=== PATIENT | female | born 1955 | race Hispanic/Latino ===

== ENCOUNTER → 2018-02-13 | Outpatient (CLI) | payer OTHER | END | disposition home or self-care (01) | LOC: OIH 11:34 | PROVIDERS: ATTEND Family Medicine | DX: M17.0 Bilateral primary osteoarthritis of knee (principal) | CPT/HCPCS: 73562 ==

== ENCOUNTER → 2018-02-28 | Outpatient (CLI) | payer OTHER | END | disposition home or self-care (01) | LOC: RAH 09:51 | PROVIDERS: ATTEND Family Medicine | DX: Z12.31 Encounter for screening mammogram for malignant neoplasm of breast (principal) | CPT/HCPCS: 77067 ==

== ENCOUNTER 2018-09-10 14:52 | Observation (INO) | payer OTHER ==
[~2018-09-10] VITALS: Ht 152.4 cm; Wt 74.6 kg
[2018-09-10 15:37] LABS: BASOPHILS % (AUTO) 1.1 % (0.0-5.0); EOSINOPHILS % (AUTO) 1.9 % (0.0-8.0); HEMATOCRIT 44.8 % (36-48); LYMPHOCYTES % (AUTO) 22.4 % (21.0-51.0); MEAN CORPUSCULAR HEMOGLOBIN 29.7 pg (27.0-33.0); MEAN CORPUSCULAR HGB CONC 34.2 g/dL (32.0-36.0); MEAN CORPUSCULAR VOLUME 86.8 fL (79-99); MONOCYTES % (AUTO) 7.2 % (3.0-13.0); NEUTROPHILS % (AUTO) 67.4 % (40.0-77.0); PLATELET COUNT (AUTO) 238 K/uL (130-400); RED BLOOD CELL COUNT(AUTO) 5.17 MIL/uL (4.00-5.50); RED CELL DISTRIBUTION WIDTH 13.4 % (11.0-15.5); WHITE BLOOD COUNT (AUTO) 6.2 K/uL (4.8-10.8)
[2018-09-10 15:45] LABS: CREATININE 0.5 mg/dL (0.5-1.5); POTASSIUM 3.8 mmol/L (3.5-5.1)
[2018-09-10 15:49] LABS: INR 0.95 (0.85-1.15); PARTIAL THROMBOPLASTIN TIME 26.4 SEC (26.3-35.5)
[2018-09-10 15:51] LABS: ALBUMIN 3.9 g/dL (3.5-5.0); BILIRUBIN,TOTAL 0.4 mg/dL (0.2-1.0); TOTAL PROTEIN, SERUM 6.9 g/dL (6.0-8.3)
[2018-09-10] MEDS ORDERED: ASPIRIN 325 MG TABLET ONE (18:21)
[2018-09-10] MEDS ORDERED: LACTULOSE 20 GM/30 ML UDCUP PO PRN (18:45)
[2018-09-10] MEDS ORDERED: ZOLPIDEM TARTRATE 5 MG TAB PO PRN (18:45)
[2018-09-10] MEDS ORDERED: GUAIFENESIN SUGAR-FREE 100 MG/5 ML UDCUP PO PRN (18:45)
[2018-09-10] MEDS ORDERED: ACETAMINOPHEN 325 MG TAB PO PRN (18:45)
[2018-09-10] MEDS ORDERED: GUAIFENESIN-DM 200/20 MG 10 ML PO PRN (18:45)
[2018-09-10] MEDS ORDERED: MAG HYDROX/AL HYDROX/SIMETH ES 30 ML SUSP UDCUP PO PRN (18:45)
[2018-09-10] MEDS ORDERED: SODIUM CHLORIDE 0.9% 10 ML VIAL IVP PRN (18:45)
[2018-09-10] MEDS ORDERED: DIPHENHYDRAMINE HCL 25 MG CAPSULE PO PRN (18:45)
[2018-09-10] MEDS ORDERED: DiphenhydrAMINE HCL 50 MG/ML VIAL IVP PRN (18:45)
[2018-09-10] MEDS ORDERED: CLONIDINE HCL 0.1 MG TABLET PO PRN (18:45)
[2018-09-10] MEDS ORDERED: NITROGLYCERIN 0.4 MG SL TAB SL PRN (18:45)
[2018-09-10] MEDS ORDERED: ONDANSETRON HCL 4 MG/2 ML VIAL IVP PRN (18:45)
[2018-09-10 22:44] LABS: CREATINE KINASE, TOTAL 179 U/L (21-232); MYOGLOBIN 75 ng/mL (10-92); TROPONIN I < 0.04 ng/mL (0.00-0.06)
[2018-09-10 23:41] VITALS: BP 124/96
[2018-09-11] MEDS ORDERED: ERGO500014 PO (00:11)
[2018-09-11] MEDS ORDERED: MELO-106 PO (00:11)
[2018-09-11] MEDS: METOPROLOL TARTRATE 50 MG TAB PO SCH ×3 (00:30→21:00)
[2018-09-11] MEDS: NITROGLYCERIN 1GM/1 INCH PACKET TD SCH ×4 (00:31→20:50)
[2018-09-11] MEDS: ACETAMINOPHEN 325 MG TAB PO PRN ×2 (03:58→17:22)
[2018-09-11 04:29] VITALS: BP 114/65
[2018-09-11 04:31] LABS: CREATINE KINASE, TOTAL 157 U/L (21-232); MYOGLOBIN 58 ng/mL (10-92); TROPONIN I < 0.04 ng/mL (0.00-0.06)
[2018-09-11 07:00] VITALS: BP 130/68
[2018-09-11] MEDS ORDERED: REGADENOSON 0.4 MG/5 ML PF SYG IVP SCH (08:00)
[2018-09-11] MEDS: ASPIRIN 325 MG TABLET PO SCH (08:17)
[2018-09-11 11:00] VITALS: BP 146/70
[2018-09-11 16:00] VITALS: BP 133/74
[2018-09-11 19:45] VITALS: BP 108/59
[2018-09-11 23:37] VITALS: BP 104/61
[2018-09-12 04:10] VITALS: BP 109/69
[2018-09-12] MEDS: NITROGLYCERIN 1GM/1 INCH PACKET TD SCH ×2 (04:15→12:28)
[2018-09-12 07:00] VITALS: BP 119/82
[2018-09-12] MEDS: ASPIRIN 325 MG TABLET PO SCH (08:54)
[2018-09-12] MEDS: METOPROLOL TARTRATE 50 MG TAB PO SCH (08:54)
[2018-09-12 11:00] VITALS: BP 112/46
[2018-09-12 16:00] VITALS: BP 124/54
[2018-09-12 16:05] LABS: CREATININE 0.9 mg/dL (0.5-1.5)
== END 2018-09-12 18:00 | disposition home or self-care (01) ==
LOC: EDH 14:52 → EDHIP 18:31 → 2DH 23:24
PROVIDERS: ADMIT Family Medicine; ATTEND Family Medicine
DX: R07.89 Other chest pain (principal); R73.9 Hyperglycemia, unspecified; E86.0 Dehydration; E83.52 Hypercalcemia; Z90.49 Acquired absence of other specified parts of digestive tract; Z98.49 Cataract extraction status, unspecified eye
CPT/HCPCS: 36415; 71045; 78452; 80048; 80053; 82550; 83874; 84484; 85025; 85378; 85610; 85730; 93005; 93017; 96374; A9500; G0378; J2785

== ENCOUNTER → 2019-01-05 | Outpatient (CLI) | payer OTHER ==
[~2019-01-05] MED LIST: MELO-106 PO
== END | disposition home or self-care (01) ==
LOC: OIH 13:14
PROVIDERS: ATTEND Family Medicine
DX: M25.561 Pain in right knee (principal); M25.562 Pain in left knee
CPT/HCPCS: 73560

== ENCOUNTER → 2019-05-12 | Outpatient (CLI) | payer OTHER | END | disposition home or self-care (01) | LOC: OIH 13:13 | PROVIDERS: ATTEND Family Medicine | DX: M25.551 Pain in right hip (principal) | CPT/HCPCS: 73502 ==

== ENCOUNTER → 2019-05-27 | Outpatient (CLI) | payer OTHER, MEDICARE | END | disposition home or self-care (01) | LOC: RAH 09:37 | PROVIDERS: ATTEND Family Medicine | DX: Z12.31 Encounter for screening mammogram for malignant neoplasm of breast (principal) | CPT/HCPCS: 77067 ==

== ENCOUNTER → 2021-04-17 | Outpatient (CLI) | payer OTHER, MEDICARE | END | disposition home or self-care (01) | LOC: RAH 11:55 | PROVIDERS: ATTEND Family Medicine | DX: M17.12 Unilateral primary osteoarthritis, left knee (principal); M25.762 Osteophyte, left knee | CPT/HCPCS: 73562 ==

== ENCOUNTER → 2023-10-30 | Outpatient (CLI) | payer OTHER, MEDICARE | END | disposition home or self-care (01) | LOC: RAH 13:37 | PROVIDERS: ATTEND Family Medicine | DX: Z12.31 Encounter for screening mammogram for malignant neoplasm of breast (principal) | CPT/HCPCS: 77067 ==

== ENCOUNTER 2024-06-15 06:09 | Observation (INO) | payer OTHER, MEDICARE ==
[2024-06-12 15:08] LABS: ALBUMIN 3.4 g/dL (3.5-5.0)
[2024-06-12 15:30] VITALS: BP 142/78; PULSE 74; RESP 18; TEMP 98.2
[2024-06-15] VITALS (27 sets, daily range): BP systolic 107–181; BP diastolic 66–99; PULSE 59–99; RESP 13–18; TEMP 97.4–99; O2SAT 96
[~2024-06-15] VITALS: Ht 149.9 cm; Wt 76.0 kg
[~2024-06-15 06:09] MED LIST changes: +ERGO500093 PO; +LEVO50CA4 PO; -MELO-106 PO; +MELO-108 PO; +TYLENOL ARTHRITIS PO
[2024-06-15 06:31] LABS: BASOPHILS # (AUTO) 0.08 K/uL (0.00-0.20); BASOPHILS % (AUTO) 1.1 % (0.0-5.0); EOSINOPHILS # (AUTO) 0.21 K/uL (0.00-0.70); EOSINOPHILS % (AUTO) 2.9 % (0.0-8.0); HEMATOCRIT 43.9 % (36-48); IMMATURE GRANULOCYTE ABSOLUTE 0.02 K/uL (0-1); LYMPHOCYTES # (AUTO) 2.3 K/uL (1.0-4.8); LYMPHOCYTES % (AUTO) 31.4 % (21.0-51.0); MEAN CORPUSCULAR HEMOGLOBIN 29.8 pg (27.0-33.0); MEAN CORPUSCULAR HGB CONC 33.5 g/dL (32.0-36.0); MEAN CORPUSCULAR VOLUME 88.9 fL (79-99); MONOCYTES # (AUTO) 0.6 K/uL (0.1-1.0); MONOCYTES % (AUTO) 8.1 % (3.0-13.0); NEUTROPHILS # (AUTO) 4.1 K/uL (1.8-7.7); NEUTROPHILS % (AUTO) 56.2 % (40.0-77.0); PLATELET COUNT (AUTO) 240 K/uL (130-400); RED BLOOD CELL COUNT(AUTO) 4.94 MIL/uL (4.00-5.50); RED CELL DISTRIBUTION WIDTH 12.3 % (11.0-15.5); WHITE BLOOD COUNT (AUTO) 7.2 K/uL (4.8-10.8)
[2024-06-15 06:37] LABS: APPEARANCE,URINE CLEAR (CLEAR); BILIRUBIN,URINE NEGATIVE (NEGATIVE); COLOR,URINE LIGHT-YELLOW (YELLOW); GLUCOSE, URINE (UA) NEGATIVE (NEGATIVE); KETONES,URINE NEGATIVE (NEGATIVE); LEUKOCYTE ESTERASE ,URINE 25 Leu/uL (NEGATIVE); NITRATE,URINE NEGATIVE (NEGATIVE); OCCULT BLOOD,URINE NEGATIVE (NEGATIVE); PROTEIN,URINE NEGATIVE (NEGATIVE); UROBILINOGEN,URINE 0.2 mg/dL (0.2-1.0)
[2024-06-15 06:43] LABS: ADD UA MICROSCOPIC YES
[2024-06-15] MEDS: FAMOTIDINE 20MG VIAL IV ONE (06:43)
[2024-06-15] MEDS: acetaMINOPHEN 1,000 MG/100 ML VIAL IV ONE (06:43)
[2024-06-15] MEDS ORDERED: ketaMINE 50MG/ML SYRINGE 50 MG/ML DISP.SYRIN ONE (06:45)
[2024-06-15] MEDS ORDERED: ROPivacaine 0.5% 5MG/ML 30ML ONE (06:45)
[2024-06-15] MEDS ORDERED: LIDOCAINE PF 100MG/5ML (2%) SYRINGE 5ML ONE (06:46)
[2024-06-15] MEDS ORDERED: proPOFol 10 MG/ML 20ML VIAL IV ONE (06:47)
[2024-06-15] MEDS ORDERED: FENTanyl CITRate PF 50 MCG/1 ML 2ML VIAL ONE (06:47)
[2024-06-15] MEDS ORDERED: rocuRONium bROMide 10MG/1ML 5ML VL ONE (06:47)
[2024-06-15 06:49] LABS: SQUAMOUS EPITHELIAL CELL,UR RARE /HPF (0-2)
[2024-06-15] MEDS: ceFAZolin SODIUM 2 GM VIAL ONE (07:20)
[2024-06-15] MEDS ORDERED: ondanSETRON 4MG INJ ONE (07:22)
[2024-06-15] MEDS ORDERED: dexaMETHasone SOD PHOSPHATE 10MG/ML 1ML VIAL ONE (07:22)
[2024-06-15] MEDS: TRANEXAMIC ACID 1000MG/10ML ONE (07:25)
[2024-06-15] MEDS: LACTATED RINGERS 1000ML 1,000 ML IV ONE (07:45)
[2024-06-15] MEDS: ROPivacaine 0.5% 5MG/ML 30ML ONE (07:58)
[2024-06-15] MEDS: ketOROlac 30MG VIAL (30MG/ML) ONE (07:58)
[2024-06-15] MEDS ORDERED: GLYCOPYRROLATE 0.2 MG/ML 5 ML VIAL ONE (08:42)
[2024-06-15] MEDS ORDERED: NEOSTIGMINE METHYLSULFATE 1MG/ML IV ONE (08:43)
[2024-06-15] MEDS ORDERED: ondanSETRON 4MG INJ IVP PRN (09:00)
[2024-06-15] MEDS: polyETHYLene GLYCol 3350 17 GM POWD.PACK PO SCH (09:00)
[2024-06-15] MEDS ORDERED: FERROUS FUMARATE 324 MG TABLET PO PRN (09:00)
[2024-06-15] MEDS: 0.9%NACL 1000ML 1,000 ML IV SCH (09:00)
[2024-06-15] MEDS ORDERED: PoTASSium chloRIDE 20MEQ/100ML 100 ML IV PRN (09:00)
[2024-06-15] MEDS: doCUSate SODIUM 100 MG CAP PO SCH (09:00)
[2024-06-15] MEDS ORDERED: traMADol HCL 50 MG TABLET PO PRN (09:00)
[2024-06-15] MEDS: GABApentin 100 MG CAPSULE PO SCH (09:00)
[2024-06-15] MEDS ORDERED: CALCIUM CARB 500MG PO PRN (09:00)
[2024-06-15] MEDS ORDERED: PoTASSium chloRIDE 20MEQ ER 20 MEQ ERTAB PO PRN (09:00)
[2024-06-15] MEDS ORDERED: PoTASSium chl 10% ELIXIR 20MEQ 20 MEQ/15 ML UDCUP PO PRN (09:00)
[2024-06-15] MEDS: ketOROlac 15MG/ML VIAL (15MG/ML) IV SCH (10:15)
[2024-06-15] MEDS: ketOROlac 15MG/ML VIAL (15MG/ML) ONE (10:16)
[2024-06-15] MEDS: ceFAZolin SODIUM 2 GM VIAL IVPB SCH (16:22)
[2024-06-16] VITALS (7 sets, daily range): BP systolic 106–128; BP diastolic 50–77; PULSE 76–103; RESP 16–20; TEMP 97.5–98.3; O2SAT 96
[2024-06-16 04:59] LABS: HEMATOCRIT 37.6 % (36-48); MEAN CORPUSCULAR HEMOGLOBIN 29.8 pg (27.0-33.0); MEAN CORPUSCULAR HGB CONC 33.2 g/dL (32.0-36.0); MEAN CORPUSCULAR VOLUME 89.5 fL (79-99); RED BLOOD CELL COUNT(AUTO) 4.2 MIL/uL (4.00-5.50); RED CELL DISTRIBUTION WIDTH 12.5 % (11.0-15.5); WHITE BLOOD COUNT (AUTO) 12.6 K/uL (4.8-10.8)
[2024-06-16 05:16] LABS: CREATININE 0.7 mg/dL (0.5-1.0); POTASSIUM 4.3 mmol/L (3.5-5.1)
[2024-06-16] MEDS: levoTHYROxine 50 MCG TABLET PO SCH (06:34)
[2024-06-16] MEDS: CYCLOBENZAPRINE HCL 10 MG TABLET PO PRN (08:28)
[2024-06-16] MEDS: ASPIRIN 325MG EC TAB PO SCH (08:28)
[2024-06-16] MEDS: HYDROcodone/APAP 5/325 1 TAB TABLET PO PRN (08:29)
[2024-06-16] MEDS ORDERED: NON-FORMULARY MEDICATION 1 EACH (Levothyroxine Sodium (Levothyroxine) 50 MCG) PO SCH (09:00)
[2024-06-16] MEDS: GABApentin 100 MG CAPSULE PO SCH (14:00)
[2024-06-16] MEDS: ketOROlac 15MG/ML VIAL (15MG/ML) IV PRN (18:49)
[2024-06-17 03:02] VITALS: BP 121/65; PULSE 90; RESP 16; TEMP 98.2
[2024-06-17] MEDS ORDERED: DOCU-116 PO (07:42)
[2024-06-17] MEDS ORDERED: HYDR-4060 PO (07:42)
[2024-06-17] MEDS ORDERED: CYCL-309 PO (07:42)
[2024-06-17] MEDS ORDERED: ASPI-891 PO (07:42)
[2024-06-17] MEDS ORDERED: GABA100C PO (07:42)
[2024-06-17 08:00] VITALS: BP 125/70; PULSE 103; RESP 18; TEMP 99.3; O2SAT 96
[2024-06-18] MEDS ORDERED: BisaCODYL 10 MG SUPP.RECT RC PRN (09:00)
[2024-06-22] MEDS ORDERED: ERGOCALCIFEROL (VITAMIN D2) 50,000 UNIT CAPSULE PO SCH (09:00)
== END 2024-06-17 10:25 | disposition home or self-care (01) ==
LOC: DAH 06:09 → DAHIP 06:10 → 4BH 10:30
PROVIDERS: ADMIT Student in an Organized Health Care Education/Training Program; ATTEND Student in an Organized Health Care Education/Training Program
DX: M17.12 Unilateral primary osteoarthritis, left knee (principal); D62 Acute posthemorrhagic anemia; E03.9 Hypothyroidism, unspecified; R26.89 Other abnormalities of gait and mobility; Z79.899 Other long term (current) drug therapy
CPT/HCPCS: 82040; 84134; 86140; 36415 ×3; 87641; 96365; 96366; 96375; 64447; 27447; 85025; 87086; 81001; 73560; 97161; 96376; 80048; 85027; 97116 ×3; 97530 ×4; G0378 ×46; A4223 ×2; A4663; A4215 ×2; J7120; J3490 ×5; J3010; J1100; J2001; J2704; J2405; J1885 ×5; J2710; J2795 ×2; J0690 ×3; C1713 ×2; G0168; C1776 ×2; A4649 ×2; A4930; A6255; A5120; A4222; A4221; A4216

== ENCOUNTER 2025-04-09 12:55 | Emergency (ER) | payer OTHER, MEDICAID ==
[~2025-04-09] VITALS: Ht 152.4 cm; Wt 65.8 kg
[~2025-04-09 12:55] MED LIST changes: +ASPI-891 PO; +CYCL-309 PO; +DOCU-116 PO; +GABA100C PO; +HYDR-4060 PO; -LEVO50CA4 PO; +LEVO50CA5 PO; -MELO-108 PO; -TYLENOL ARTHRITIS PO
[2025-04-09] MEDS ORDERED: LIDOCAINE HCL 1% 20 ML VIAL INJ STA (13:29)
[2025-04-09] MEDS: acetaMINOPHEN 325 MG TAB PO STA (14:54)
--- NOTE | 2025-04-09 14:54 | ERN ---
ED Note History of Present Illness Stated Complaint: FALL Chief Complaint: Mechanical Fall Time Seen by MD: 12:57 Time Seen by Midlevel: 13:00 Dictation: 70-year-old female came in status post fall. Patient states she tripped outside and hit her head on the concrete. Has a laceration to the left eyebrow. Denies any LOC. and denies any blood thinners. Also complaining of left knee pain is concerned because she has a total knee replacement and wants to be evaluated for that as well. Allergies: Coded Allergies: No Known Allergies (Verified Allergy, Unknown, 09/10/18) Home Meds Active Scripts Docusate Sodium (Colace) 100 Mg Capsule, 100 MG PO BID for 30 Days, #60 CAP 0 Refills Prov:JOHANNA LIMA MD 06/17/24 Hydrocodone/Acetaminophen (Hydrocodon-Acetaminophen 5-325) 5 Mg-325 Mg Tablet, 1-2 TAB PO Q4H PRN for MODERATE/SEVERE PAIN LEVEL, #56 TAB 0 Refills Prov:JOHANNA LIMA MD 06/17/24 Gabapentin (Neurontin) 100 Mg Capsule, 100 MG PO Q8H6, #90 CAP 0 Refills Prov:JOHANNA LIMA MD 06/17/24 Cyclobenzaprine HCl (Cyclobenzaprine HCl) 10 Mg Tablet, 5 MG PO Q8H PRN for MUSCLE SPASMS, #45 TAB 0 Refills Prov:JOHANNA LIMA MD 06/17/24 Aspirin (Aspirin EC) 325 Mg Tablet.dr, 325 MG PO DAILY, #30 TAB 0 Refills Prov:JOHANNA LIMA MD 06/17/24 Reported Medications Levothyroxine Sodium (Levothyroxine) 50 Mcg Capsule, 50 MCG PO DAILY, CAP 06/12/24 Ergocalciferol (Vitamin D2) (Vitamin D2) 1,250 Mcg (54588 Unit) Capsule, 1250 MCG PO QWEEK, CAP 06/12/24 Past Medical History Past Medical History: Arthritis, Hypothyroid Additional Past Medical Hx: HX OF KIDNEY STONES Surgical History: Cholecystectomy Family History: Negative Social History: Negative History: Not Applicable Review of System Dictation Constitutional: Negative for fever,chills, and weight loss Eyes: Negative for injury, pain,redness, and discharge ENT: Negative for injury,pain or swelling Cardiovascular: Negative for chest pain, palpitations, and edema Respiratory: Negative for shortness of breath, cough, and wheezing, Abdomen/GI: Negative for abdominal pain, nausea, vomiting, diarrhea, and constipation Back: Negative for injury and pain : Negative for injury, bleeding and discharge MS/Extremity: Negative for injury and deformity Skin: Negative for rash, and discoloration, laceration to left eyebrow Neuro: Negative for headache, weakness, numbness, tingling, and seizure Psych: Negative for suicide ideation, homicidal ideation, and hallucinations Review of Systems: was completed Initial Vital Sign VS Vital Signs Date Time Temp Pulse Resp B/P (MAP) Pulse Ox O2 Delivery O2 Flow Rate FiO2 04/09/25 13:05 99.0 76 17 167/103 97 Room Air 0 04/09/25 13:15 21 Physical Exam Dictation General: awake, alert, NAD Head/Face: Normocephalic, atraumatic Eyes: PERRL, EOMI, vision at baseline ENT: oral cavity clear, TMs clear, no signs of infection Neck: Trachea midline, supple, no nuchal rigidity Cardiovascular: RRR, normal S1/S2, No MRGs, no JVD Respiratory: CTAB, no respiratory distress, No rales or wheezes Abdomen: Soft, non-tender, non-distended, normal bowel sounds, no guarding or rebound. Skin: Warm, dry, normal turgor, no rash, 2 cm laceration to left eyebrow, minimal bleeding small hematoma MS/Extremity: Pulses equal, no cyanosis, neurovascular intact, FROM Neuro: COAx4, GCS 15, strength 5/5, CN 2-12 intact, normal cerebellar exam, normal gait, Psych: Normal behavior, mood, and affect normal Results (Laboratory/Radiology) Labs Reviewed?: Yes CT Scan Comment: [place] [id number] [id number] IMAGING REPORT Signed PATIENT: ALLEGRA JEONG MR#: [id number] : 1955 SEX: F AGE: 70 LOCATION: [facility] ORDER 58 STATUS: REG ER REPORT#: [id number] SERVICE 58 REASON: fall, head laceration ORDERING PHYSICIAN: GEOVANNY HENSLEY NP PROCEDURE: HEAD WO - CT HEAD/BRAIN W/O CONTRAST CT HEAD/BRAIN W/O CONTRAST HISTORY: Status post fall COMPARISON: None TECHNIQUE: Multiple sequential axial images of the head were obtained from the base of the skull through vertex. Patient was not given contrast through intravenous route. FINDINGS: The ventricles and extraventricular CSF spaces are dilated consistent with cerebral atrophy. Nonspecific white matter changes seen. There is no midline shift, mass effect or herniation. No acute intracranial bleed is seen. Visualized portion of the paranasal sinuses are grossly within normal limits. IMPRESSION: 1. No acute intracranial bleed is seen. 2. Atrophy with white matter changes. CT was performed with one or more following dose reduction techniques: automated exposure control, adjustment of the mA and kv according to patient's size, or use of a iterative reconstruction technique. DICTATED BY: DARYA LAY MD DATE: 04/09/25 152 ELECTRONICALLY SIGNED BY: DARYA LAY MD DATE: 04/09/25 1526 ED Course ED Course Orders Procedure Category Date Status Time Ct Head/Brain W/O CT 04/09/25 Resulted Contrast 12:59 Knee 3vws Lt RAD 04/09/25 Resulted 13:01 Acetaminophen 325 Tab PHA 04/09/25 Complete (Tylenol 325mg Tab 13:29 Lidocaine Hcl 1% 20ml PHA 04/09/25 Complete Vial (Lidocaine Hc 13:29 Current Medications Medications (Trade) Dose Ordered Sig/Kathe Route PRN Reason Start Time Stop Time Status Last Admin Dose Admin Acetaminophen (TYLenol 325MG TAB) 650 mg ONCE STAT PO 04/09/25 13:29 04/09/25 13:31 DC 04/09/25 14:54 Lidocaine HCl (Lidocaine HCl 1% 20ml Vial) ONCE STAT INJ 04/09/25 13:29 04/09/25 13:31 DC Vital Signs Date Time Temp Pulse Resp B/P (MAP) Pulse Ox O2 Delivery O2 Flow Rate FiO2 04/09/25 15:45 98.6 78 20 130/81 99 Room Air* 0 21 04/09/25 13:15 99.0 76 12 167/103 97 Room Air* 0 21 04/09/25 13:05 99.0 76 17 167/103 97 Room Air 0 Medical Decision Making MDM MDM: 70-year-old female came in status post fall. Patient states she tripped outside and hit her head on the concrete. Has a laceration to the left eyebrow. Denies any LOC. and denies any blood thinners. Also complaining of left knee pain is concerned because she has a total knee replacement and wants to be evaluated for that as well. CT scan of the head shows no acute findings. X-ray of the knee shows no acute findings. Lack duration was repaired, see procedure note. Discussed with the patient on wound care and when to return back to the ER. Patient verbalized understanding, answered all questions. Differential diagnosis: ICH, laceration, Rationale: Tests considered and ordered secondary to shared decision making include: Previous outside records reviewed: Old ER visits. Risk of complication and/or morbidity or mortality of patient management: None Medications-Per medication reconciliation Need for hospitalization: Patient does not meet criteria for hospitalization. Need for emergency major/minor surgery: No There are no social concerns with this patient. Prescription drug management Prescriptions will include symptomatic care Patient's prior external medical records from other ER visits were reviewed by me as indicated. Prior testing and results from previous visits were reviewed. Prior tests were taken into account with medical decision making and resource utilization, independent historian/historians were used to obtain complete medical history. I independently interpreted the test that were performed, results were reviewed by me and considered findings on radiology if ordered. Medical management and examination interpretation discussions were had by me with other qualified healthcare professionals as indicated for the patient's care. Procedure Wound Location: head Wound's Depth, Shape: superficial Wound Explored: clean Anesthesia: 1% Lidocaine Volume Anesthetic (ccs): 5 Wound Debrided: minimal Wound Repaired With: sutures Suture Size/Type: 3:0 Number of Sutures: 5 DX & DISP Disposition: Discharge Departure Impression: Primary Impression: Fall Additional Impressions: Laceration of eyebrow, left, Knee contusion Condition: Stable Additional Instructions: Limpiar la herida con jabon y agua, regresar en 7-10 [place] a quitar las puntadas. Regresar si tiene, n ausea, vomititos, fiebre. Seguir con lopez doctor familiar en 2-3 [place]. Referrals: TYREL ALONSO MD (PCP) Time of Disposition: 15:35 I have reviewed the case, and I agree with, Diagnosis and Plan GEOVANNY HENSLEY NP Apr 09, 2025 14:54 VEENA ARREGUIN DO Apr 12, 2025 03:43
--- NOTE | 2025-04-09 14:54 | NUR ---
ORDERED LIDOCAINE GIVEN BY GEOVANNY MOVING VAN DRIVER AT BEDSIDE
--- NOTE | 2025-04-09 15:26 | HMCIMG ---
CT HEAD/BRAIN W/O CONTRAST HISTORY: Status post fall COMPARISON: None TECHNIQUE: Multiple sequential axial images of the head were obtained from the base of the skull through vertex. Patient was not given contrast through intravenous route. FINDINGS: The ventricles and extraventricular CSF spaces are dilated consistent with cerebral atrophy. Nonspecific white matter changes seen. There is no midline shift, mass effect or herniation. No acute intracranial bleed is seen. Visualized portion of the paranasal sinuses are grossly within normal limits. IMPRESSION: 1. No acute intracranial bleed is seen. 2. Atrophy with white matter changes. CT was performed with one or more following dose reduction techniques: automated exposure control, adjustment of the mA and kv according to patient's size, or use of a iterative reconstruction technique.
[2025-04-09 15:45] VITALS: BP 130/81; PULSE 78; RESP 20; TEMP 98.6; O2SAT 99
--- NOTE | 2025-04-09 16:39 | HMCIMG ---
KNEE 3VWS LT HISTORY: Status post fall COMPARISON: None TECHNIQUE: 4 images of left knee were obtained. FINDINGS: Total left knee replacement changes are seen. There is no acute displaced fracture or dislocation. Degenerative changes are seen. IMPRESSION: 1. Findings as described above.
== END 2025-04-09 15:54 | disposition home or self-care (01) ==
LOC: EDH 12:55
DX: S01.112A Laceration without foreign body of left eyelid and periocular area, initial encounter (principal); S80.02XA Contusion of left knee, initial encounter; E03.9 Hypothyroidism, unspecified; M19.90 Unspecified osteoarthritis, unspecified site; Z79.82 Long term (current) use of aspirin; Z79.890 Hormone replacement therapy; Z90.49 Acquired absence of other specified parts of digestive tract; W01.0XXA Fall on same level from slipping, tripping and stumbling without subsequent striking against object, initial encounter; Y93.89 Activity, other specified; Y92.89 Other specified places as the place of occurrence of the external cause; Y99.8 Other external cause status
CPT/HCPCS: 12011; 70450; 73562; 99284